=== PATIENT | male | born 1990 | race African-American/Black ===

== ENCOUNTER 2024-09-22 10:06 | Emergency (ER) | payer SELFPAY ==
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
[2024-09-22 10:34] VITALS: BP 126/97; PULSE 115; RESP 16; TEMP 36.3; O2SAT 98
[2024-09-22] MEDS: IBUPROFEN 400 MG TABLET 800 MG PO (13:10)
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
[2024-09-22 15:44] VITALS: BP 132/78; PULSE 82; RESP 16; O2SAT 96
== END 2024-09-22 15:48 | disposition home or self-care (01) ==
PROVIDERS: Emergency Provider Emergency Medicine
DX: S61.052A Open bite of left thumb without damage to nail, initial encounter (principal); S63.602A Unspecified sprain of left thumb, initial encounter; Y04.1XXA Assault by human bite, initial encounter
CPT/HCPCS: 73140; 99283; A9270